=== PATIENT | male | born 1965 ===

== ENCOUNTER 2017-06-25 07:59 | Day surgery (SDC) | payer OTHER ==
[2017-06-25 08:34] VITALS: BMI 29.4
[2017-06-25 08:53] VITALS: TEMP 97.5
[2017-06-25] MEDS ORDERED: Propofol 10 mg/ml Inj (20 ML) ONE (10:51)
[2017-06-25] MEDS ORDERED: Midazolam 2 MG/2 ML VIAL ONE (10:51)
[2017-06-25] MEDS ORDERED: Lidocaine Hydrochloride 5 ML INJ ONE (10:52)
[2017-06-25 13:34] VITALS: O2SAT 100
[2017-06-25 13:40] VITALS: BP 109/66; PULSE 64; RESP 12
== END 2017-06-25 12:30 | disposition home or self-care (01) ==
LOC: C.ENDO 07:59
PROVIDERS: ATTEND Internal Medicine
DX: K21.9 Gastro-esophageal reflux disease without esophagitis (principal); Z12.11 Encounter for screening for malignant neoplasm of colon; K29.70 Gastritis, unspecified, without bleeding; K64.8 Other hemorrhoids
CPT/HCPCS: 43239; 45378; 88305; J2250; J2704; J3010